=== PATIENT | female | born 1980 | race Caucasian/White ===

== ENCOUNTER 2016-11-20 05:43 | Outpatient (CLI) | payer BC ==
[~2016-11-20] VITALS: Ht 154.9 cm; Wt 83.0 kg
[~2016-11-20 05:43] MED LIST: ACHD5005 PO; FERR325C PO; IBUP-1773 PO; MULT-974 PO
[2016-11-20] MEDS ORDERED: LISI10TA2 PO ×2 (09:33)
[2016-11-20] MEDS ORDERED: NORG1TAB16 PO ×2 (09:53)
== END 2016-11-20 09:57 ==
LOC: PREOP 05:43
PROVIDERS: ATTEND Surgery
DX: Z01.818 Encounter for other preprocedural examination (principal); K92.1 Melena

== ENCOUNTER 2016-11-23 07:34 | Day surgery (SDC) | payer BC ==
[~2016-11-23] VITALS: Ht 154.9 cm; Wt 83.0 kg
[~2016-11-23 07:34] MED LIST changes: +LISI10TA2 PO; +NORG1TAB16 PO
[2016-11-23 07:50] VITALS: BP 124/81
[2016-11-23] MEDS ORDERED: NS IV 500 ML 500 ML ONE (07:59)
[2016-11-23] MEDS ORDERED: NS IV 500 ML 500 ML IV PRN (08:00)
--- NOTE | 2016-11-23 08:16 | History & Physicial ---
History of Present Illness History of Present Illness Reason for visit/HPI This young lady came in for colonoscopy due to symptoms of hematochezia. She noted fresh blood with her stools and noted that it has been "hard to go." Her symptoms have been decreasing recently. She denies any family history of colon cancer or polyps. She mentioned that it was possible her grandfather had colon cancer, but he before confirmation of this. Date of Admission 11/23/2016 Date Seen by Provider: Nov 23, 2016 Time Seen by Provider: 08:16 I consulted on this patient on 11/23/16 08:10 Attending Physician Shreyas Garber MD Admitting Physician Tyesha Kendall MD Consult Allergies and Home Medications Allergies Coded Allergies: No Known Drug Allergies (Unverified , 11/20/16) Home Medications Lisinopril 10 Mg Tablet, 10 MG PO DAILY, (Reported) Norgestrel-Ethinyl Estradiol 1 Each Tablet, 1 EACH PO DAILY, (Reported) Past Gmlsuqh-Tvuzle-Ybvhdm Hx Patient Social History Employed/Student: employed Recent Foreign Travel: No Contact w/other who traveled: No Recent Hopitalizations: No Immunizations Up To Date Date of Influenza Vaccine: Jan 06, 2016 Seasonal Allergies Seasonal Allergies: Yes Surgeries Section Cardiovascular Hypertension Reproductive System Hx Reproductive Disorders: No Sexually Transmitted Disease: No HIV/AIDS: No Female Reproductive Disorders: Denies Gastrointestinal Chronic Constipation HEENT Loss of Vision: Bilateral Hearing Impairment: Denies Blood Transfusions Adverse Reaction to a Blood Tr: No (N/A) Physical Exam Vital Signs Capillary Refill : TIMOTHY LANE MEDICAL STUDENT Nov 23, 2016 08:16
[2016-11-23] MEDS ORDERED: fentaNYL INJECTION 100 MCG/2 ML AMP ONE ×2 (08:27)
[2016-11-23] MEDS ORDERED: MIDAZOLAM 2 MG/2 ML (VERSED) VIAL ONE ×3 (08:27)
[2016-11-23] MEDS: fentaNYL INJECTION 100 MCG/2 ML AMP IVP PRN ×3 (08:43→08:55)
[2016-11-23] MEDS: MIDAZOLAM 2 MG/2 ML (VERSED) VIAL IVP PRN ×3 (08:50→08:57)
--- NOTE | 2016-11-23 09:04 | Conscious Sedation/ASA ---
Conscious Sedation Pre-Proced Time Reviewed: 07:58 ASA Class: 2 Airway Mallampati Classification: ([place] appropriate class) I. II. III, IV Lungs Heart ASA score ASA 1: a normal healthy patient ASA 2: a patient with a mild systemic disease (mid diabetes, controlled hypertension, obesity ASA 3: a patient with a severe systemic disease that limits activity (angina , COPD, prior Myocardial infarction) ASA 4: a patient with an incapacitating disease that is a constant threat to life (CHF, renal failure) ASA 5: a moribund patient not expected to survive 24 hrs. (ruptured aneurysm) ASA 6: a declared brain patient whose organs are being harvested. For emergent operations, add the letter E after the classification Grade 1 Sedation Plan: Discussed options with patient/fam Note The patient is an appropriate candidate to undergo the planned procedure, sedation, and anesthesia. The patient immediately re-assessed prior to indication. VIKTORIYA TEAGUE MD Nov 23, 2016 9:04 am
--- NOTE | 2016-11-23 09:08 | Endo Procedure Record ---
Endo Procedure Report Date of Procedure Nov 23, 2016 Surgeon (s) VIKTORIYA TEAGUE MD Post Procedure/Op Diagnosis internal hemorrhoids Procedure Performed colonoscopy to cecum Description of Procedure Anesthesia Type: Conscious Sedation Specimen(s) collected/removed none Description of the Procedure Indication for procedure: This lady came in for colonoscopy to investigate intermittent, fresh rectal bleeding off several months duration. She denied any rectal or abdominal pain. In addition, there is no distinct family history of colon cancer or polyps. Informed consent was obtained after reviewing the procedure in detail. Description of the procedure: She was placed in left lateral decubitus position and her vital signs were monitored. Conscious sedation was achieved using Versed and fentanyl. Examination of the perianal region was negative for any anal fissure or obvious external hemorrhoids. Digital examination was otherwise unremarkable. The colonoscope was then introduced into the rectum and advanced all the way up to the cecum The quality bowel preparation was excellent. The scope was then withdrawn slowly and the mucosa examined in a systematic fashion Finding: Grade 1 hemorrhoid, mainly visualized during retroflexed view. This must be considered the etiology of rectal bleeding. No polyps were seen. There was no mucosal inflammation either. She tolerated the procedure well and was taken back to the nursing area in a stable condition. Impression: Rectal bleeding due to a mild degree of internal hemorrhoids. Recommend conservative management. Copies To: VERO BLAND MD,VIKTORIYA Morel MD Nov 23, 2016 9:08 am
--- NOTE | 2016-11-23 09:09 | Discharge Inst-Simple/Standard ---
Discharge Inst-Standard Discharge Medications New, Converted or Re-Newed RX: Other Patient Instructions/Follow Up Plan of Care/Instructions/FU: high fiber diet and stool softeners as needed. Activity as Tolerated: Yes Discharge Diet: No Restrictions VIKTORIYA TEAGUE MD Nov 23, 2016 9:09 am
[2016-11-23 09:35] VITALS: BP 132/71
[2016-11-23 10:05] VITALS: BP 130/68
[2016-11-23 10:20] VITALS: BP 130/68
== END 2016-11-23 10:20 | disposition home or self-care (01) ==
LOC: ENDO 07:34
PROVIDERS: ATTEND Surgery
DX: K64.8 Other hemorrhoids (principal); K62.5 Hemorrhage of anus and rectum; I10 Essential (primary) hypertension; Z79.899 Other long term (current) drug therapy
CPT/HCPCS: 84703

== ENCOUNTER → 2020-01-08 | Outpatient (CLI) | payer BC ==
--- NOTE | 2020-01-08 11:20 | Diagnostic Imaging Report ---
PROCEDURE: US Non-ob pelvis comp/trans. TECHNIQUE: Multiple realtime grayscale images were obtained of the pelvis in various projections endovaginally. Transabdominal imaging was also performed. INDICATION: Endometrial polyp and menorrhagia. Uterus is retroverted measuring 6.7 x 4.5 x 4.5 cm. Endometrium is thickened up to 17 mm. There is some significant heterogeneity in the region of the lower uterine segment which also shows some increased vascularity. Endometrial mass is suspected. No definite myometrial mass is identified. Right ovary measures 3.7 x 2.0 cm and left ovary measures 2.2 x 2.3 cm. No adnexal mass or free fluid is identified. IMPRESSION: There is abnormal thickening to the endometrium. In addition, the lower uterine segment is heterogeneous and hypervascular and the possibility of an endometrial mass cannot be entirely excluded. No other significant abnormality is detected. Dictated by: Dictated on workstation # [id number]
== END ==
LOC: RAD 10:00
PROVIDERS: ATTEND Obstetrics & Gynecology
DX: N84.0 Polyp of corpus uteri (principal); N92.0 Excessive and frequent menstruation with regular cycle; N85.8 Other specified noninflammatory disorders of uterus
CPT/HCPCS: 76830; 76856

== ENCOUNTER 2020-01-16 15:48 | Outpatient (RCR) | payer BC ==
[~2020-01-16] VITALS: Ht 154 cm; Wt 81.8 kg
[~2020-01-16 15:48] MED LIST changes: +ASCO250T17 PO; +FERR-84 PO; +LOSA25TA41 PO; +MULT-1136 PO
== END 2020-01-16 15:50 | disposition home or self-care (01) ==
LOC: PREOP 15:48
PROVIDERS: ATTEND Obstetrics & Gynecology
DX: Z01.818 Encounter for other preprocedural examination (principal)

== ENCOUNTER → 2020-01-17 | Outpatient (CLI) | payer BC ==
[~2020-01-17] MED LIST changes: +ACET-78 PO; +OXC5T PO
== END ==
LOC: LAB FS 11:11
PROVIDERS: ATTEND Obstetrics & Gynecology
DX: Z01.812 Encounter for preprocedural laboratory examination (principal); Z20.828 Contact with and (suspected) exposure to other viral communicable diseases
CPT/HCPCS: 87635

== ENCOUNTER 2020-01-19 12:50 | Day surgery (SDC) | payer BC ==
[~2020-01-19] VITALS: Ht 154 cm; Wt 81.8 kg
[2020-01-19] VITALS (10 sets, daily range): BP systolic 105–147; BP diastolic 63–95
[~2020-01-19 12:50] MED LIST changes: -ACET-78 PO; -OXC5T PO
[2020-01-19] MEDS ORDERED: LACTATED RINGERS 1,000 ML IV PRN (12:57)
[2020-01-19] MEDS ORDERED: metroNIDAZOLE 500MG/100ML IVPB 100 ML IV ONE (13:00)
[2020-01-19] MEDS ORDERED: ceFAZolin INJECTION 1,000 MG in WATER (STERILE) FOR INJECTION 10 ML IV ONE (13:00)
[2020-01-19] MEDS ORDERED: fentaNYL INJECTION 100 MCG/2 ML AMP ONE (13:46)
[2020-01-19] MEDS ORDERED: ONDANSETRON 4 MG/2 ML (SDV) Z0FRAN ONE (13:46)
[2020-01-19] MEDS ORDERED: SEVOFLURANE (ULTANE) 15 ML INHAL SOLN ONE (13:46)
[2020-01-19] MEDS ORDERED: MIDAZOLAM 2 MG/2 ML (VERSED) VIAL ONE (13:46)
[2020-01-19] MEDS ORDERED: LIDOCAINE PF 2% 5 ML (XYLOCAINE) VIAL ONE (13:46)
[2020-01-19] MEDS ORDERED: proPOfol 200 MG/20 ML (DIPRIVAN) VIAL IV ONE (13:46)
--- NOTE | 2020-01-19 13:56 | Progress Note-Pre Operative ---
Pre-Operative Progress Note H&P Reviewed The H&P was reviewed, patient examined and no changes noted. Date Seen by Provider: Jan 19, 2020 Time Seen by Provider: 13:40 Date H&P Reviewed: Jan 19, 2020 Time H&P Reviewed: 13:00 Pre-Operative Diagnosis: endometrial thickening/polyp; abnormal uterine bleeding VICENTE MAURO DO Jan 19, 2020 13:56
--- NOTE | 2020-01-19 14:01 | Operative Report ---
Operative Report Date of Procedure/Surgery Jan 19, 2020 Surgeon (s) VICENTE MAURO DO Passenger Service Representative (s): NA Post-Operative Diagnosis multiple endometrial polyps with large (4-5 cm) prolapsed polyp Procedure Performed hysteroscopy, dilation and curettage Description of Procedure Anesthesia Type: General Estimated blood loss (mL): minimal Specimen(s) collected/removed endometrial curettings Description of the Procedure With informed consent, patient was taken to the operating room where general anesthetic was found to be adequate. She was then prepped and draped in the usual sterile fashion in the dorsal lithotomy position. Bladder was drained of clear yellow urine with a straight catheter. A speculum was placed in the vagina and a tenaculum placed on the anterior lip of the cervix. There was a l arge polypoid mass protruding through the cervical os. This was grasped with a polyp forceps and then gently twisted until it amputated at the base. This was then send for pathology. The cervix was dilated with [place] dilators to allow insertion of the hysteroscope. I then performed hysteroscopy. There were multiple polypoid lesions within the uterine cavity and fluffy appearing tissue underlying. I was able to visualize the os on either side I removed the hysteroscope and then performed a curette with a sharp curette removed a moderate amount of curettings. This was sent for pathology. On follow up scope, there was still tissue noted. Then I followed up with another curette until a gritty texture was heard. There were not as many polypoid masses as when she had her last dilation and curettage in 2013. Once this was completed, I removed the instruments, removed the tenaculum and there was good hemostasis. Patient was awakened and taken to reconvey in stable condition. Sponge, lap, and instrument counts correct times 2. There was minimal deficit of hysterroscopic fluid. Findings of the Procedure proliferative endometrium with multiple small polypoid lesions; there was a large (4-5 cm) prolapsed polypoid mass through the cervix, prolapsed about 3-4 cm out of the cervical os. Allergies and Home Medications Allergies Coded Allergies: No Known Drug Allergies (Unverified , 01/16/20) Home Medications Acetaminophen 500 Mg Tablet, 1,000 MG PO TID PRN for mild pain Prescribed by: VICENTE MAURO on 01/19/20 1407 Ascorbic Acid 250 Mg Tab.chew, 250 MG PO DAILY, (Reported) Ferrous Sulfate 325 Mg Tablet, 325 MG PO BID, (Reported) Ibuprofen 600 Mg Tablet, 600 MG PO Q6H Prescribed by: VICENTE MAURO on 01/19/201406 Losartan Potassium 25 Mg Tablet, 25 MG PO DAILY, (Reported) Multivitamin 1 Each Tablet, 1 EACH PO DAILY, (Reported) Norgestrel-Ethinyl Estradiol 1 Each Tablet, 1 EACH PO DAILY, (Reported) Oxycodone Hcl 5 Mg Tab, 5 MG PO Q6H Prescribed by: VICENTE MAURO on 01/19/201406 Patient Home Medication List Home Medication List Reviewed: Yes VICENTE MAURO DO Jan 19, 2020 14:01
[2020-01-19] MEDS ORDERED: OXC5T PO (14:07)
[2020-01-19] MEDS ORDERED: IBUP-1773 PO (14:07)
[2020-01-19] MEDS ORDERED: ACET-78 PO (14:07)
[2020-01-19 14:08] LABS: BASOPHILS % (AUTO) 0 % (0-10); EOSINOPHILS # (AUTO) 0.4 10^3/uL (0.0-0.3); EOSINOPHILS % (AUTO) 5 % (0-10); HEMATOCRIT 34 % (35-52); HEMOGLOBIN 10.6 g/dL (11.5-16.0); LYMPHOCYTES # (AUTO) 2.3 10^3/uL (1.0-4.0); LYMPHOCYTES % (AUTO) 25 % (12-44); MEAN CORPUSCULAR HEMOGLOBIN 26 pg (25-34); MEAN CORPUSCULAR HGB CONC 31 g/dL (32-36); MEAN CORPUSCULAR VOLUME 84 fL (80-99); MEAN PLATELET VOLUME 9.5 fL (9.0-12.2); MONOCYTES # (AUTO) 0.8 10^3/uL (0.0-1.0); MONOCYTES % (AUTO) 8 % (0-12); NEUTROPHILS # (AUTO) 5.5 10^3/uL (1.8-7.8); NEUTROPHILS % (AUTO) 61 % (42-75); PLATELET COUNT 364 10^3/uL (130-400)
--- NOTE | 2020-01-19 14:12 | Discharge Inst-Women's Service ---
Discharge Inst-Women's Serv Depart Medication/Instructions New, Converted or Re-Newed RX: RX on Chart Instructions follow up in 7-10 days. Final Diagnosis abnormal uterine bleeding anemia thickened endometrium endometrial polyp Problems Reviewed?: Yes Consults/Follow Up Additional Follow Up: Yes (7-10 days) Activity Activity: Activity as Tolerated Driving Instructions: No Driving for 24 Hours NO SMOKING: NO SMOKING Nothing Inside Vagina: No Douching, No [place], No Tampons Diet Discharge Diet: No Restrictions Symptoms to Report to : Bleeding Excessive (> 1 pad per hour x 2 hours (exp ect to have spotting)), Pain Increased, Fever Over 101 Degrees F, Vaginal Bleeding Increase, Cramps in Feet or Legs, Vaginal Discharge Foul For Any Problems or Questions: Contact Your Physician VICENTE MAURO DO Jan 19, 2020 14:12
[2020-01-19] MEDS ORDERED: HYDROmorphone 2 MG/ML VIAL (DILAUDID) IV ONE (15:00)
[2020-01-19] MEDS ORDERED: ONDANSETRON 4 MG/2 ML (SDV) Z0FRAN IVP PRN (15:00)
--- NOTE | 2020-01-19 15:13 | Anesthesia-General Post-Op ---
General Patient Condition Mental Status/LOC: Same as Preop Cardiovascular: Satisfactory Nausea/Vomiting: Absent Respiratory: Satisfactory Pain: Controlled Complications: Absent Post Op Complications Complications None Follow Up Care/Instructions Patient Instructions None needed. Anesthesia/Patient Condition Patient Condition Patient is doing well, no complaints, stable vital signs, no apparent adverse anesthesia problems. STEVEN FORTE DO Jan 19, 2020 15:13
== END 2020-01-19 16:35 | disposition home or self-care (01) ==
LOC: SDC 12:50
PROVIDERS: ATTEND Obstetrics & Gynecology
DX: N84.0 Polyp of corpus uteri (principal); I10 Essential (primary) hypertension; D64.9 Anemia, unspecified; Z79.3 Long term (current) use of hormonal contraceptives; Z79.899 Other long term (current) drug therapy; Z11.2 Encounter for screening for other bacterial diseases
CPT/HCPCS: 36415; 84703; 85025; 86850; 86900; 86901; 87081

== ENCOUNTER → 2021-03-19 | Outpatient (CLI) | payer BC ==
[~2021-03-19] MED LIST changes: +ACET-78 PO; -LISI10TA2 PO; +LISI10TA25 PO; +OXC5T PO
--- NOTE | 2021-03-19 15:37 | Diagnostic Imaging Report ---
INDICATION: Routine screening. COMPARISON: No prior mammograms are available for comparison. This is a baseline study. TECHNIQUE: 2D and 3D bilateral screening mammography was performed with CAD. FINDINGS: Scattered fibroglandular densities are identified bilaterally. There are occasional benign calcifications. No mass or malignant-appearing microcalcifications are seen. The axillae are unremarkable. IMPRESSION: No mammographic features suspicious for malignancy are identified. ACR BI-RADS Category 2: Benign findings. Result letter will be mailed to the patient. Note: At least 10% of breast cancer is not imaged by mammography. Dictated by: Dictated on workstation # [id number]
== END ==
LOC: RAD 11:00
PROVIDERS: ATTEND Obstetrics & Gynecology
DX: Z12.31 Encounter for screening mammogram for malignant neoplasm of breast (principal)
CPT/HCPCS: 77063; 77067

== ENCOUNTER 2023-02-26 22:40 | Emergency (ER) | payer BC ==
[~2023-02-26] VITALS: Ht 154.9 cm; Wt 81.6 kg
[2023-02-27] MEDS ORDERED: RX-CYCLOBENZAPRINE 10 MG (FLEXERIL) TAB PPK#3 PO STA (00:23)
[2023-02-27] MEDS ORDERED: RX-NAPROXEN (NAPROSYN) 250 MG TAB PPK#4 PO STA (00:23)
[2023-02-27] MEDS ORDERED: CYCL10TA25 PO ×2 (00:27→00:42)
[2023-02-27] MEDS ORDERED: TRAM50TA3 PO ×2 (00:27→00:42)
[2023-02-27] MEDS ORDERED: NAPR500T8 PO ×2 (00:27→00:42)
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
[2023-02-27 00:34] VITALS: BP 158/107
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
--- NOTE | 2023-02-27 08:16 | Diagnostic Imaging Report ---
CLINICAL INDICATION: Patient with left hand pain. EXAM: X-ray left hand, 3 views. COMPARISON: None. FINDINGS AND IMPRESSION: There is no acute fracture or dislocation. There is no significant bone or joint abnormality. The carpal bones are unremarkable. Dictated by: Dictated on workstation # [id number]
--- NOTE | 2023-02-27 09:08 | Diagnostic Imaging Report ---
HISTORY: Left hip pain, pelvic pain COMPARISON: None TECHNIQUE: Frontal view of the pelvis. 2 views of the left hip. FINDINGS: No acute fracture seen in the pelvis or left hip. Alignment appears normal. Joint spaces are preserved. IMPRESSION: 1. No acute osseous abnormalities seen in the pelvis or left hip. Dictated by: Dictated on workstation # [id number]
== END 2023-02-27 00:40 | disposition home or self-care (01) ==
LOC: EDUNIT# 22:40 → ER 22:41
DX: S32.049A Unspecified fracture of fourth lumbar vertebra, initial encounter for closed fracture (principal); M79.645 Pain in left finger(s); V89.2XXA Person injured in unspecified motor-vehicle accident, traffic, initial encounter; Y92.410 Unspecified street and highway as the place of occurrence of the external cause
CPT/HCPCS: 36415; 71045; 72125; 72128; 72131; 73130; 84703